=== PATIENT | male | born 1945 | race Caucasian/White ===

== ENCOUNTER 2024-06-25 16:20 | Inpatient (IN) | payer MEDICARE, BC ==
[~2024-06-25] VITALS: Ht 182.9 cm; Wt 92.5 kg
[2024-06-25 16:53] LABS: BASOPHILS % (AUTO) 0.1 % (0.0-2.0); HEMATOCRIT 46 % (39-51); HEMOGLOBIN 15.3 g/dL (13.5-17.5); LYMPHOCYTES # (AUTO) 0.5 K/uL (0.8-4.8); LYMPHOCYTES % (AUTO) 2.8 % (20.0-44.0); MEAN CORPUSCULAR HEMOGLOBIN 29 PG (26.0-33.0); MEAN CORPUSCULAR HGB CONC 33 g/dl (31.0-36.0); MEAN CORPUSCULAR VOLUME 87 fL (80-96); MONOCYTES # (AUTO) 0.6 K/uL (0.1-1.30); MONOCYTES % (AUTO) 2.9 % (2.0-12.0); NEUTROPHILS # (AUTO) 18.4 K/uL (1.8-8.9); NEUTROPHILS % (AUTO) 94.2 % (43.0-81.0); PLATELET COUNT (AUTO) 250 K/uL (150-450); RED BLOOD CELL COUNT(AUTO) 5.28 MIL/uL (4.5-6.0); WHITE BLOOD COUNT (AUTO) 19.5 K/uL (4.3-11.0)
[2024-06-25] MEDS: IV NS 0.9% 1,000 ML BAG IV ONE (17:00)
[2024-06-25] MEDS ORDERED: MORPHINE SULFATE INJ 2 MG/ML DISP.SYRIN ONE (17:01)
[2024-06-25 17:19] LABS: CALCIUM, SERUM 9.5 mg/dL (8.5-10.1); CARBON DIOXIDE 24 mmol/L (21-32); CHLORIDE 105 mmol/L (98-107); CREATININE 1.6 mg/dL (0.6-1.3); GLUCOSE 184 mg/dL (74-106); POTASSIUM 3.5 mmol/L (3.5-5.1); SODIUM SERUM 142 mmol/L (136-145); UREA NITROGEN, BLOOD 23 mg/dL (7-18)
[2024-06-25] MEDS: MORPHINE SULFATE INJ 2 MG/ML DISP.SYRIN IV ONE (17:19)
[2024-06-25 17:25] LABS: ALANINE AMINOTRANSFERASE 14 U/L (12-78); ALKALINE PHOSPHATASE 115 U/L (46-116); ASPARTATE AMINOTRANSFERASE 13 U/L (15-37); BILIRUBIN,DIRECT 0.3 mg/dL (0.0-0.2); BILIRUBIN,TOTAL 1.5 mg/dL (0.2-1.0); INR 1.07 (0.91-1.10); LIPASE 25 U/L (16-77); PARTIAL THROMBOPLASTIN TIME 27.3 SEC (24.3-34.3); PROTHROMBIN TIME 11.3 SECS (9.2-11.1)
[2024-06-25 17:31] LABS: NT-PRO BNP 963 pg/mL (0-125)
[2024-06-25 17:54] LABS: APPEARANCE,URINE CLEAR (CLEAR); BILIRUBIN,URINE NEGATIVE (NEGATIVE); BLOOD, URINE 1+ Ery/uL (NEGATIVE); COLOR,URINE YELLOW (YELLOW); KETONES,URINE 1+ mg/dL (NEGATIVE); LEUKOCYTE ESTERASE ,URINE NEGATIVE (NEGATIVE); NITRITE, URINE NEGATIVE (NEGATIVE); PROTEIN,URINE 2+ mg/dl (NEGATIVE); UGLUCOSE TRACE mg/dL (NEGATIVE); UROBILINOGEN,URINE 0.2 EU/dL (0.2)
[2024-06-25 18:59] LABS: ADD URINE CULTURE NO; BACTERIA,URINE Rare /HPF (None Seen); RBC,URINE 0-2 /HPF (0-2); SQUAMOUS EPITHELIAL CELL,UR None Seen /HPF (None Seen)
[2024-06-25] MEDS ORDERED: AMLO-213 PO (19:14)
[2024-06-25] MEDS ORDERED: DONE10TA44 PO (19:15)
[2024-06-25] MEDS ORDERED: FEXO-65 PO (19:15)
[2024-06-25] MEDS ORDERED: ESOM40CA PO (19:15)
[2024-06-25] MEDS ORDERED: KETOROLAC TROMETHAMINE 15 MG/ML VIAL ONE (19:15)
[2024-06-25] MEDS ORDERED: AZEL137S7 BNOSTRILS (19:15)
[2024-06-25] MEDS ORDERED: MONT10TA22 PO (19:15)
[2024-06-25] MEDS ORDERED: FLUT1BLS6 IH (19:15)
[2024-06-25] MEDS ORDERED: APIX2.5T PO (19:15)
[2024-06-25] MEDS ORDERED: LOSA100T31 PO (19:15)
[2024-06-25] MEDS ORDERED: TAMSULOSIN 0.4 MG CAP.SR.24H ONE (19:15)
[2024-06-25] MEDS ORDERED: ONDANSETRON HCL/PF 4 MG/2 ML VIAL ONE (19:15)
[2024-06-25] MEDS ORDERED: [UNRECOGNIZED DRUG - CODE] PO (19:15)
[2024-06-25] MEDS ORDERED: OMEG100037 PO (19:15)
[2024-06-25] MEDS ORDERED: CEFTRIAXONE 1GM BAG (ER ONLY) 50 ML IV ONE (19:15)
[2024-06-25] MEDS ORDERED: QUET25TA PO (19:15)
[2024-06-25] MEDS ORDERED: MEMA21CA2 PO (19:15)
[2024-06-25] MEDS ORDERED: PARO10TA4 PO (19:15)
[2024-06-25] MEDS ORDERED: MOME17SP10 BNOSTRILS (19:15)
[2024-06-25] MEDS: ONDANSETRON HCL/PF - ER 4 MG/2 ML VIAL IV ONE (19:28)
[2024-06-25] MEDS: KETOROLAC TROMETHAMINE 15 MG/ML VIAL IV ONE (19:28)
[2024-06-25] MEDS: CEFTRIAXONE 1GM BAG (ER ONLY) 1 GM/50 ML PIGGYBACK IV ONE (19:28)
[2024-06-25] MEDS: TAMSULOSIN 0.4 MG CAP.SR.24H PO ONE (19:32)
[2024-06-25 21:20] VITALS: BP 137/90; TEMP 98; O2SAT 98
[2024-06-25] MEDS ORDERED: ZOLPIDEM TARTRATE 5 MG TABLET PO PRN (22:30)
[2024-06-25] MEDS ORDERED: MAG HYDROX/AL HYDROX/SIMETH 30 ML UDC PO PRN (22:30)
[2024-06-25] MEDS ORDERED: ONDANSETRON HCL/PF 4 MG/2 ML VIAL IVP PRN (22:30)
[2024-06-25] MEDS ORDERED: ACETAMINOPHEN 325 MG TABLET PO PRN (22:30)
[2024-06-25] MEDS ORDERED: Z GUARD REMEDY 4 OZ OINT TP PRN (22:30)
[2024-06-25] MEDS ORDERED: HYDROCODONE/APAP 5/325MG TABLET PO PRN (22:30)
[2024-06-25] MEDS ORDERED: MAGNESIUM HYDROXIDE 30 ML UDC PO PRN (22:30)
[2024-06-25] MEDS: IV 1/2NS 1000 ML 1,000 ML IV PRN (22:38)
[2024-06-26] VITALS: BP 131/75; TEMP 98.6; O2SAT 98
[2024-06-26 04:00] VITALS: BP 111/60; TEMP 98.4; O2SAT 98
[2024-06-26 07:25] LABS: BASOPHILS % (AUTO) 0.2 % (0.0-2.0); HEMATOCRIT 38 % (39-51); HEMOGLOBIN 12.5 g/dL (13.5-17.5); LYMPHOCYTES % (AUTO) 4.7 % (20.0-44.0); MEAN CORPUSCULAR HEMOGLOBIN 29 PG (26.0-33.0); MEAN CORPUSCULAR HGB CONC 33 g/dl (31.0-36.0); MEAN CORPUSCULAR VOLUME 88 fL (80-96); MONOCYTES # (AUTO) 1.1 K/uL (0.1-1.30); MONOCYTES % (AUTO) 5.1 % (2.0-12.0); NEUTROPHILS # (AUTO) 19.7 K/uL (1.8-8.9); PLATELET COUNT (AUTO) 181 K/uL (150-450); RED BLOOD CELL COUNT(AUTO) 4.28 MIL/uL (4.5-6.0); RED CELL DISTRIBUTION WIDTH 14.7 % (11.5-15.0); WHITE BLOOD COUNT (AUTO) 21.9 K/uL (4.3-11.0)
[2024-06-26 07:54] LABS: ALANINE AMINOTRANSFERASE 13 U/L (12-78); ALBUMIN 2.6 g/dL (3.4-5.0); ALKALINE PHOSPHATASE 73 U/L (46-116); ASPARTATE AMINOTRANSFERASE 15 U/L (15-37); BILIRUBIN,DIRECT 0.3 mg/dL (0.0-0.2); BILIRUBIN,TOTAL 1.3 mg/dL (0.2-1.0); CALCIUM, SERUM 7.8 mg/dL (8.5-10.1); CARBON DIOXIDE 24 mmol/L (21-32); CHLORIDE 107 mmol/L (98-107); CREATININE 2.1 mg/dL (0.6-1.3); GLUCOSE 135 mg/dL (74-106); MAGNESIUM 1.8 mg/dL (1.8-2.4); PHOSPHORUS 3.9 mg/dL (2.5-4.9); SODIUM SERUM 140 mmol/L (136-145); TOTAL PROTEIN, SERUM 5.7 g/dL (6.4-8.2); UREA NITROGEN, BLOOD 28 mg/dL (7-18)
[2024-06-26 08:00] VITALS: BP 127/62; TEMP 99; O2SAT 95
[2024-06-26] MEDS: PANTOPRAZOLE 40 MG TABLET.DR PO SCH (08:08)
[2024-06-26] MEDS: PAROXETINE HCL 10 MG TABLET PO SCH (08:29)
[2024-06-26] MEDS: AMLODIPINE BESYLATE 10 MG TABLET PO SCH (08:29)
[2024-06-26] MEDS: MULTIVITAMINS,THERAGRAN 1 UDTAB TABLET PO SCH (08:29)
[2024-06-26] MEDS: MONTELUKAST SODIUM (10MG) 10 MG TABLET PO SCH (08:29)
[2024-06-26] MEDS: MEMANTINE HCL 5 MG TABLET PO SCH (08:29)
[2024-06-26] MEDS: cetrizine 10 MG TABLET PO SCH (08:29)
[2024-06-26] MEDS: ENOXAPARIN SODIUM 40 MG/0.4 ML DISP.SYRIN SQ SCH (08:37)
[2024-06-26] MEDS ORDERED: Medication Not On Formulary EA (Omega-3/Dha/Epa/Fish Oil (Fish Oil 1,000 mg Softgel) 1,0 PO SCH (09:00)
[2024-06-26] MEDS ORDERED: Medication Not On Formulary EA (Fluticasone/Umeclidin/Vilanter (Trelegy Ellipta 100-62.5 IH SCH (09:00)
[2024-06-26 12:00] VITALS: BP 127/62; TEMP 99; O2SAT 95
[2024-06-26 16:00] VITALS: BP 127/62; TEMP 99.4; O2SAT 92
[2024-06-26 20:00] VITALS: BP 147/80; TEMP 98; O2SAT 96
[2024-06-26] MEDS: DONEPEZIL 5 MG TABLET PO SCH (21:38)
[2024-06-26] MEDS: QUETIAPINE FUMARATE 25 MG TABLET PO SCH (21:40)
[2024-06-26] MEDS: TAMSULOSIN 0.4 MG CAP.SR.24H PO SCH ×2 (21:40→21:41)
[2024-06-26] MEDS: CEFTRIAXONE 1 G in IV D5W 50 ML IV SCH (21:41)
[2024-06-27] VITALS: BP 143/80; TEMP 98; O2SAT 96
[2024-06-27 04:00] VITALS: BP 113/67; TEMP 98.3; O2SAT 92
[2024-06-27 07:08] LABS: BASOPHILS % (AUTO) 0.3 % (0.0-2.0); EOSINOPHILS % (AUTO) 0.1 % (0.0-6.0); HEMATOCRIT 36 % (39-51); HEMOGLOBIN 12.1 g/dL (13.5-17.5); LYMPHOCYTES # (AUTO) 0.7 K/uL (0.8-4.8); MEAN CORPUSCULAR HEMOGLOBIN 29 PG (26.0-33.0); MEAN CORPUSCULAR HGB CONC 34 g/dl (31.0-36.0); MEAN CORPUSCULAR VOLUME 87 fL (80-96); NEUTROPHILS # (AUTO) 9.4 K/uL (1.8-8.9); NEUTROPHILS % (AUTO) 84.6 % (43.0-81.0); PLATELET COUNT (AUTO) 130 K/uL (150-450); RED BLOOD CELL COUNT(AUTO) 4.11 MIL/uL (4.5-6.0); RED CELL DISTRIBUTION WIDTH 14.8 % (11.5-15.0); WHITE BLOOD COUNT (AUTO) 11.1 K/uL (4.3-11.0)
[2024-06-27 07:47] LABS: ALANINE AMINOTRANSFERASE 10 U/L (12-78); ALBUMIN 2.5 g/dL (3.4-5.0); ALKALINE PHOSPHATASE 70 U/L (46-116); ASPARTATE AMINOTRANSFERASE 13 U/L (15-37); CALCIUM, SERUM 7.9 mg/dL (8.5-10.1); CARBON DIOXIDE 23 mmol/L (21-32); CHLORIDE 104 mmol/L (98-107); CREATININE 2.6 mg/dL (0.6-1.3); GLUCOSE 122 mg/dL (74-106); MAGNESIUM 1.9 mg/dL (1.8-2.4); PHOSPHORUS 3.2 mg/dL (2.5-4.9); POTASSIUM 3.6 mmol/L (3.5-5.1); SODIUM SERUM 136 mmol/L (136-145); TOTAL PROTEIN, SERUM 5.9 g/dL (6.4-8.2); UREA NITROGEN, BLOOD 38 mg/dL (7-18)
[2024-06-27 08:00] VITALS: BP 110/50; TEMP 97; O2SAT 96
[2024-06-27 08:58] VITALS: BP 110/50
[2024-06-27 22:16] LABS: CREATINE KINASE, TOTAL 90 U/L (39-308)
== END 2024-06-27 11:50 | disposition left against medical advice (07) | DRG 690 ==
LOC: ER 16:25 → TELE1 20:27
PROVIDERS: ADMIT Student in an Organized Health Care Education/Training Program; ATTEND Student in an Organized Health Care Education/Training Program
DX: N13.6 Pyonephrosis (principal); N20.2 Calculus of kidney with calculus of ureter; N28.1 Cyst of kidney, acquired; N17.0 Acute kidney failure with tubular necrosis; I10 Essential (primary) hypertension; J44.9 Chronic obstructive pulmonary disease, unspecified; Z66 Do not resuscitate; R74.01 Elevation of levels of liver transaminase levels; E80.6 Other disorders of bilirubin metabolism; M89.8X9 Other specified disorders of bone, unspecified site; E66.9 Obesity, unspecified; Z68.27 Body mass index [BMI] 27.0-27.9, adult; D64.9 Anemia, unspecified
CPT/HCPCS: 36415; 71045-TC; 76770-TC; 80048-TC; 80053-TC; 80076-TC; 81001; 82550-TC; 83690-TC; 83735-TC; 83880; 83970; 84100-TC; 84155; 84165; 84484-TC; 85025-TC; 85730-TC; 86140-TC; 86850-TC; 87040-TC; 87081-TC; 87086-TC; A4223; G0378; J0696; J1650; J1885; J2270; J2405; J3490; J7060